=== PATIENT | female | born 1960 | race Two or more races ===

== ENCOUNTER 2016-10-16 23:03 | Emergency (ER) | payer MEDICAID ==
[~2016-10-16] VITALS: Ht 162.6 cm; Wt 52.0 kg
[2016-10-16 23:07] VITALS: Ht 162.6 cm; Wt 52.0 kg
[2016-10-16] MEDS ORDERED: SOD CHLORIDE 0.9% 500 ML IV STA (23:57)
[2016-10-16] MEDS ORDERED: ONDANSETRON 4 MG INJ IV STA (23:57)
[2016-10-17] MEDS ORDERED: METOCLOPRAMIDE 10 MG INJ IV STA (00:05)
[2016-10-17] MEDS ORDERED: LIDOCAINE/MYLANTA 40 ML BTL PO STA (00:05)
[2016-10-17] MEDS ORDERED: FAMOTIDINE 20 MG TAB PO STA (00:05)
[2016-10-17 00:38] LABS: BASOPHILS % 0.4 % (0.0-2.0); HEMATOCRIT 36.6 % (37.0-47.0); HEMOGLOBIN 12.4 g/dl (12.0-16.0); LYMPHOCYTES # 1.2 10^3/ul (0.8-2.9); LYMPHOCYTES % 24.8 % (15.0-51.0); MEAN CORPUSCULAR HEMOGLOBIN 35.2 pg (29.0-33.0); MEAN CORPUSCULAR HGB CONC 33.9 g/dl (32.0-37.0); MEAN PLATELET VOLUME 12.2 fl (7.4-10.4); MONOCYTE # 0.5 10^3/ul (0.3-0.9); MONOCYTES % 10.3 % (0.0-11.0); NEUTROPHIL # 3.2 10^3/ul (1.6-7.5); NEUTROPHILS % 64.1 % (39.0-77.0); PLATELET COUNT 151 10^3/UL (140-415); RED BLOOD COUNT 3.52 10^6/ul (4.20-5.40); RED CELL DISTRIBUTION WIDTH 14.3 % (11.5-14.5)
[2016-10-17 00:52] LABS: ADD UMIC YES; UR ASCORBIC ACID NEGATIVE (NEGATIVE); UR BILIRUBIN (Dip) NEGATIVE (NEGATIVE); UR BLOOD (Dip) NEGATIVE (NEGATIVE); UR CLARITY SLIGHTLY CLOUDY (CLEAR); UR COLOR YELLOW (YELLOW); UR GLUCOSE (Dip) NEGATIVE (NEGATIVE); UR KETONES (Dip) 2+ mg/dL (NEGATIVE); UR LEUKOCYTE ESTERASE (Dip) TRACE Leu/ul (NEGATIVE); UR MUCUS FEW /HPF (NONE SEEN); UR NITRITE (Dip) NEGATIVE (NEGATIVE); UR RBC 2 /HPF (0-5); UR SPECIFIC GRAVITY (Dip) 1.024 (1.003-1.030); UR SQUAMOUS EPITHELIAL CELL FEW /HPF (FEW); UR TOTAL PROTEIN (Dip) 2+ mg/dl (NEGATIVE); UR UROBILINOGEN (Dip) 1+ mg/dL (NEGATIVE)
[2016-10-17 00:55] LABS: ALANINE AMINOTRANSFERASE 65 IU/L (13-69); ALBUMIN 4.7 g/dl (3.3-4.9); ALKALINE PHOSPHATASE 184 IU/L (42-121); ANION GAP 24 (8-16); ASPARTATE AMINO TRANSFERASE 157 IU/L (15-46); BILIRUBIN,INDIRECT 0.8 mg/dl (0-1.1); BILIRUBIN,TOTAL 0.8 mg/dl (0.2-1.3); BLOOD UREA NITROGEN 16 mg/dl (7-20); CARBON DIOXIDE 32 mmol/L (21-31); CHLORIDE 91 mmol/L (97-110); CREATININE 0.46 mg/dl (0.44-1.00); GLUCOSE 127 mg/dl (70-220); POTASSIUM 4.3 mmol/L (3.5-5.1); SODIUM 143 mmol/L (135-144); TOTAL PROTEIN 8.3 g/dl (6.1-8.1)
[2016-10-17 01:15] LABS: TROPONIN-I < 0.012 ng/ml (0.00-0.12)
[2016-10-17] MEDS ORDERED: LISI-313 PO (01:25)
[2016-10-17] MEDS ORDERED: MTF1000T PO (01:25)
[2016-10-17] MEDS ORDERED: DIAZ2TAB3 PO (01:25)
[2016-10-17] MEDS ORDERED: GLIP5TAB13 PO (01:25)
--- NOTE | 2016-10-17 01:25 | RADRPT ---
PROCEDURE: CHEST - 1 VIEW CLINICAL INDICATION: 56-year-old female with chest/abdominal pain. TECHNIQUE: A single frontal AP upright portable view of the chest was performed. The images were reviewed on a PACS workstation. COMPARISON: None. FINDINGS: The cardiomediastinal silhouette has a normal appearance. There is no evidence for an infiltrate. There is no evidence for congestive heart failure. There is no evidence for pneumothorax. The osseou s structures are intact. IMPRESSION: No evidence for active cardiopulmonary disease. .Serjio Sanders MD, MD Date Time Electronically viewed and signed by .Serjio Sanders MD, on 10/17/2016 01:25 .M/
[2016-10-17] MEDS ORDERED: FAMO-96 PO (02:13)
[2016-10-17] MEDS ORDERED: METO10TA92 PO (02:13)
[2016-10-17 03:31] VITALS: BP 122/66; PULSE 77; RESP 20; TEMP 98
--- NOTE | 2016-10-19 01:04 | ERD ---
ER Documentation Chief Complaint Date/Time DATE: 10/17/16 TIME: 00:52 Chief Complaint upper abd pain w/ vomiting, sore throat HPI 56 year old female with a history of DM and HTN presenting with complaints of epigastric pain for 3 months. Her paini is now getting worse and is associated with occasional NBNB vomiting with eating. No associated diarrhea, hematochezia , melena, fever, chills, dysuria. Pain is described as burning, radiating into the chest, 8/10, associated with sore throat after vomiting. She has not seen her PPCP about this. ROS All systems reviewed and are negative except as per history of present illness. Medications Home Meds Active Scripts Famotidine* (Pepcid*) 20 Mg Tablet, 20 MG PO BID for 14 Days, TAB Prov:SAYRA TREJO MD 10/17/16 Metoclopramide* (Reglan*) 10 Mg Tablet, 10 MG PO Q6 Y for NAUSEA AND/OR VOMITING , #10 TAB Prov:SAYRA TREJO MD 10/17/16 Reported Medications Diazepam* (Diazepam*) 2 Mg Tablet, 2 MG PO, TAB 10/17/16 Glipizide* (Glipizide*) 5 Mg Tablet, 5 MG PO AC BREAKFAST, TAB 10/17/16 Lisinopril* (Lisinopril*) 5 Mg Tablet, 5 MG PO DAILY, #30 TAB 10/17/16 Metformin* (Glucophage*) 1,000 Mg Tablet, 1000 MG PO WITH BREAKFAST DINNE, #30 TAB 10/17/16 Allergies Allergies: Coded Allergies: No Known Allergy (Verified Allergy, Unknown, 10/16/06) PMhx/Soc History of Surgery: Yes (APPY; VAGINAL SX.) Anesthesia Reaction: No Hx Neurological Disorder: No Hx Respiratory Disorders: No Hx Cardiac Disorders: Yes (PALPATATIONS; ?AFIB) Hx Psychiatric Problems: No Hx Miscellaneous Medical Probl: No Hx Alcohol Use: No Hx Substance Use: No Hx Tobacco Use: No Smoking Status: Never smoker FmHx Family History: No diabetes Physical Exam Vitals Vital Signs Date Time Temp Pulse Resp B/P Pulse Ox O2 Delivery O2 Flow Rate FiO2 10/17/16 03:31 98.0 77 20 122/66 100 Room Air 10/17/16 01:27 98.3 80 20 138/63 100 Room Air 10/16/16 23:47 98.3 76 20 117/76 100 Room Air 10/16/16 23:07 98.3 118 20 118/74 98 Physical Exam Const: well appearing, no apparent distress Head: Atraumatic Eyes: Normal Conjunctiva ENT: Normal External Ears, Nose and Mouth. Neck: Full range of motion..~ No meningismus. Resp: Clear to auscultation bilaterally Cardio: Regular rate and rhythm, no murmurs. 2+ distal pulses Abd: Soft, mild epigastric tenderness, non distended. no rebound or guarding. Normal bowel sounds Skin: No petechiae or rashes Back: No midline or flank tenderness Ext: No cyanosis, or edema Neur: Awake and alert Psych: Normal Mood and Affect Result Diagram: 10/17/166 10/17/16 000 Results 24 hrs Laboratory Tests Test 10/17/16 00:06 White Blood Count 5.010^3/ul Red Blood Count 3.5210^6/ul Hemoglobin 12.4g/dl Hematocrit 36.6% Mean Corpuscular Volume 104.0fl Mean Corpuscular Hemoglobin 35.2pg Mean Corpuscular Hemoglobin Concent 33.9g/dl Red Cell Distribution Width 14.3% Platelet Count 77284^3/UL Mean Platelet Volume 12.2fl Neutrophils % 64.1% Lymphocytes % 24.8% Monocytes % 10.3% Eosinophils % 0.0% Basophils % 0.4% Nucleated Red Blood Cells % 0.0/100WBC Neutrophils # 3.210^3/ul Lymphocytes # 1.210^3/ul Monocytes # 0.510^3/ul Eosinophils # 0.010^3/ul Basophils # 0.010^3/ul Nucleated Red Blood Cells # 0.010^3/ul Urine Color YELLOW Urine Clarity SLIGHTLY CLOUDY Urine pH 8.0 Urine Specific [place] 1.024 Urine Ketones 2+mg/dL Urine Nitrite NEGATIVEmg/dL Urine Bilirubin NEGATIVEmg/dL Urine Urobilinogen 1+mg/dL Urine Leukocyte Esterase TRACELeu/ul Urine Microscopic RBC 2/HPF Urine Microscopic WBC 8/HPF Urine Squamous Epithelial Cells FEW/HPF Urine Mucus FEW/HPF Urine Hemoglobin NEGATIVEmg/dL Urine Glucose NEGATIVEmg/dL Urine Total Protein 2+mg/dl Sodium Level 143mmol/L Potassium Level 4.3mmol/L Chloride Level 91mmol/L Carbon Dioxide Level 32mmol/L Anion Gap 24 Blood Urea Nitrogen 16mg/dl Creatinine 0.46mg/dl Glucose Level 127mg/dl Calcium Level 10.0mg/dl Total Bilirubin 0.8mg/dl Direct Bilirubin 0.00mg/dl Indirect Bilirubin 0.8mg/dl Aspartate Amino Transf (AST/SGOT) 157IU/L Alanine Aminotransferase (ALT/SGPT) 65IU/L Alkaline Phosphatase 184IU/L Troponin I < 0.012ng/ml Total Protein 8.3g/dl Albumin 4.7g/dl Globulin 3.60g/dl Albumin/Globulin Ratio 1.30 Lipase 12U/L Current Medications Medications (Trade) Dose Ordered Sig/Karyn Route PRN Reason Start Time Stop Time Status Last Admin Dose Admin Sodium Chloride (NS) 500 ml @ 500 mls/hr Q1H STAT IV 10/16/16 23:57 10/17/16 00:56 DC 10/17/16 00:18 Ondansetron HCl (Zofran Inj) 4 mg ONCE STAT IV 10/16/16 23:57 10/17/16 00:06 DC Metoclopramide HCl (Reglan) 10 mg ONCE STAT IV 10/17/16 00:05 10/17/16 00:07 DC 10/17/16 00:18 Famotidine (Pepcid) 20 mg ONCE STAT PO 10/17/16 00:05 10/17/16 00:07 DC 10/17/16 00:18 Miscellaneous Medication (Gi Cocktail (2)) 40 ml ONCE STAT PO 10/17/16 00:05 10/17/16 00:07 DC 10/17/16 00:18 Procedures/MDM Labs: CBC: unremarkable CMP: hypochloremia, high CO2, elevated anion gap, mild AST and alk phos elevation Lipase normal Troponin normal UA: +ketones EKG: Rate/rhythm: NSR Intervals, QRS, T: normal intervals, no acute ischemic changes Impression: no significant ischemia or arrhythmia CXR: no acute abnormalities MDM Patient is presenting with acute on chronic epigastric pain with nausea and vomiting of uncertain etiology. I have a low suspicion for biliary obstruction, pneumonia, aortic dissection, pulmonary or cardiac etiology. Patient's symptoms are more consistent with PUD versus GERD or gastritis. She was noted to have ketones in her urine but I believe this is due to dehydration and not DKA. IV fluids, antiemetics, pain meds, and GI cocktail were given with significant improvement in her symptoms upon reevaluation. I do not think imaging of her abdomen is necessary att his time. HOwever, I encouraged the patient to return in 12 hours if her pain is worsening. I will discharge her with an H2 darryl and antiemetics. Follow up with PCP recommended within the next 2-3 days and discussed possible need for referral to GI. Departure Diagnosis: Primary Impression: Chronic epigastric pain Additional Impression: Nausea and vomiting Vomiting type: unspecified Vomiting Intractability: non-intractable Qualified Code: R11.2 - Non-intractable vomiting with nausea, unspecified vomiting type Condition: Stable Patient Instructions: Nausea and Vomiting-Adult, Epigastric Pain (Uncertain Cause) [facility]errals[facility] Usted se serrano hecho un examen mdico de control que le indica que no est en godfrey condicin que requiera tratamiento urgente en el Departamento de Emergencia. Un estudio ms profundo y el tratamiento de morales condicin pueden esperar sin ningn riesgo hasta que usted sea atendida/o en el consultorio de morales mdico o godfrey cl shnie. Es responsabilidad suya arreglar godfrey jet para el seguimiento del kenyatta. MANEJO DE CONDICIONES NO URGENTES EN EL FUTURO 1) Si usted tiene un mdico de atencin primaria: Usted debera llamar a morales mdico de atencin primaria antes de venir al departamento de emergencia. Despus de las horas de consultorio, morales doctor o morales asociado/a est disponible por telfono. El mdico o enfermero de pat en el servicio telefnico puede asesorarle por corrina medio para atender el problema, o kenyatta contrario se puede programar godfrey jet. 2) Si usted no tiene un mdico de atencin primaria: Llame al mdico o clnica de referencia que aparece abajo melia las horas de consultorio para hacer godfrey jet para que le vean. CLINICAS: [facility] [phone] [facility] [phone] [facility] [id number] [place] [phone] [place] [phone] [facility]. [phone] [address] Additional Instructions: Morales dolor es probablemente debido a la gastritis versus reflujo cido. Necesita saad a morales mdico de atencin primaria ya un gastroenterlogo. Hable con morales m dico sobre esto. Volver a la paris de emergencias para cualquier empeoramiento de los sntomas. SAYRA TREJO MD Oct 19, 2016 01:04
== END 2016-10-17 03:32 | disposition home or self-care (01) ==
LOC: E/R 23:03
DX: R10.13 Epigastric pain (principal); R11.2 Nausea with vomiting, unspecified; E11.9 Type 2 diabetes mellitus without complications; I10 Essential (primary) hypertension; Z79.84 Long term (current) use of oral hypoglycemic drugs
CPT/HCPCS: 71010; 80053; 81001; 83690; 84484; 85025; 93005; J2405; J2765; J7040; Z7610; 36415; 96374

== ENCOUNTER 2016-11-12 11:56 | Emergency (ER) | END 2016-11-12 13:28 | disposition home or self-care (01) | DX: A63.0 Anogenital (venereal) warts (principal); E11.9 Type 2 diabetes mellitus without complications; Z79.84 Long term (current) use of oral hypoglycemic drugs | CPT/HCPCS: 81001; 87591; Z7502; Z7610 ==